=== PATIENT | female | born 1995 ===

== ENCOUNTER 2017-07-06 10:38 | Emergency (ER) | payer SELFPAY ==
[2017-07-06 10:56] VITALS: O2SAT 98; BMI 19.2
[2017-07-06 11:49] LABS: BASO % 0.6 % (0.0-2.0); EOS # 0.1 K/uL (0.0-0.7); EOS % 1.5 % (0.0-4.0); HEMOGLOBIN 14.6 g/dL (12.0-16.0); LYMPH # 1.5 K/uL (1.0-4.3); LYMPH % 26.4 % (20.0-40.0); MEAN CELL VOLUME 95.4 fl (81.0-99.0); MEAN CORPUSCULAR HEMOGLOBIN 31.2 pg (27.0-31.0); MEAN CORPUSCULAR HGB CONC 32.7 g/dL (33.0-37.0); MEAN PLATELET VOLUME 8.1 fl (7.2-11.7); MONO # 0.4 K/uL (0.0-0.8); NEUT # 3.6 K/uL (1.8-7.0); NEUT % 64.5 % (50.0-75.0); NRBC % 0.3 % (0.0-0.0); RBC 4.69 Mil/uL (3.80-5.20); RED CELL DISTRIBUTION WIDTH 12.5 % (11.5-14.5); WHITE BLOOD COUNT 5.6 K/uL (4.8-10.8)
[2017-07-06 11:58] LABS: ALB/GLOB RATIO 1.6 (1.0-2.1); ALBUMIN 4.8 g/dL (3.5-5.0); ALT/SGPT 31 U/L (9-52); AST/SGOT 17 U/L (14-36); BLOOD UREA NITROGEN 8 mg/dl (7-17); CALCIUM 9.6 mg/dL (8.4-10.2); GFR AFRICAN-AMERICAN > 60; GFR NON-AFRICAN AMERICAN > 60
[2017-07-06 12:14] LABS: SQUAMOUS EPITHIAL 18 /hpf (0-5); URINE BILIRUBIN NEGATIVE (NEGATIVE); URINE BLOOD NEGATIVE (NEGATIVE); URINE CLARITY CLOUDY (Clear); URINE COLOR YELLOW (YELLOW); URINE GLUCOSE (UA) NEG (Normal); URINE LEUKOCYTE ESTERASE NEG Leu/uL (Negative); URINE NITRATE NEGATIVE (NEGATIVE); URINE PROTEIN 30 mg/dL (NEGATIVE); URINE UROBILINOGEN 0.2-1.0 mg/dL (0.2-1.0)
--- NOTE | 2017-07-06 13:25 | ED PDOC ---
HPI: Abdomen Time Seen by Provider: 07/06/17 10:40 Chief Complaint (Nursing): Abdominal Pain History Per: Patient (21 y/o female here with complaint of intermittent lower abdominal pain x years. Notes pain yesterday left sided lower abdomen that resolved after taking motrin at 1:00pm (pain began at 9am) Denies any vomiting/ diarrhea/fevers/chills. States she [place] [facility] [place] similar [place] and was noted to have ovarian cyst on CT. Has f/u with forestry conservation worker and advised to see specialist for evaluation of pelvic pain but has not done so. Denies any diagnosis of STD or treatment for such. No abd surgeries.) Past Medical History Reviewed: Historical Data, Nursing Documentation, Vital Signs Vital Signs: Last Vital Signs Temp 98.1 F 07/06/17 10:55 Pulse 95 H 07/06/17 10:55 Resp 16 07/06/17 10:55 BP 111/65 07/06/17 10:55 Pulse Ox 98 07/06/17 10:55 - Medical History PMH: Denies: Chronic Kidney Disease - Surgical History Surgical History: Tonsillectomy - Family History Family History: States: No Known Family Hx - Home Medications Home Medications: Ambulatory Orders Medication Instructions Recorded Norethindrone-Ethinyl Estrad 1 tab PO DAILY 11/05/15 [Necon 1-35-28 Tablet] - Allergies Allergies/Adverse Reactions: Allergies Allergy/AdvReac Type Severity Reaction Status Date / Time No Known Allergies Allergy Verified 07/06/17 10:59 Review of Systems ROS Statement: Except As Marked, All Systems Reviewed And Found Negative Physical Exam - Reviewed Nursing Documentation Reviewed: Yes Vital Signs Reviewed: Yes - Physical Exam Appears: Positive for: Well, Non-toxic, No Acute Distress Head Exam: Positive for: ATRAUMATIC, NORMAL INSPECTION, NORMOCEPHALIC Skin: Positive for: Normal Color, Warm, DRY Eye Exam: Positive for: EOMI, Normal appearance, PERRL ENT: Positive for: Normal ENT Inspection Neck: Positive for: Normal, Painless ROM Cardiovascular/Chest: Positive for: Regular Rate, Rhythm Respiratory: Positive for: CNT, Normal Breath Sounds Gastrointestinal/Abdominal: Positive for: Normal Exam, Bowel Sounds, Soft Pelvic Exam: Positive for: Other (nontender exam. Mild bleeding noted at cervix. Minimal vaginal discharge.). Negative for: Bimanual Exam Normal Back: Positive for: Normal Inspection Extremity: Positive for: Normal ROM Neurologic/Psych: Positive for: Alert, Oriented - Laboratory Results Result Diagrams: 07/06/17 11:42 07/06/17 11:42 - ECG O2 Sat by Pulse Oximetry: 98 - Progress ED Course And Treament: Patient does not want to stay for US of pelvis. G/c sent. Disposition - Clinical Impression Clinical Impression: Abdominal pain in female - Patient ED Disposition Is Patient to be Admitted: No - Disposition Disposition: Routine/Home Disposition Time: 13:25 Condition: FAIR Instructions: Pelvic Pain in Women (ED) Forms: [employer] ([place]rainian), [facility] ED School/Work Excuse
[2017-07-06 13:28] VITALS: BP 110/68; PULSE 80; RESP 18; TEMP 98
== END 2017-07-06 13:53 | disposition home or self-care (01) ==
LOC: H.ER 10:38
DX: R10.2 Pelvic and perineal pain (principal)